=== PATIENT | male | born 2005 | race Two or more races ===

== ENCOUNTER 2024-02-13 05:07 | Emergency (ER) | payer BC, MEDICAID ==
[~2024-02-13] VITALS: Ht 188 cm; Wt 74.5 kg
[2024-02-13 05:21] VITALS: BP 100/77; PULSE 87; RESP 18; TEMP 98.7; O2SAT 97
[2024-02-13] MEDS: NEOMYCIN-BACITRACIN-POLYM UNITDOSE PKG TOP OINT TOP ONE (06:55)
[2024-02-13] MEDS: LIDOCAINE W/ EPINEPHRINE 1% 20ML VIAL ID ONE (07:03)
[2024-02-13] MEDS: LIDOCAINE 1% HCL (LOCAL ANESTH.) INJ 20ML MDV ONE (07:04)
[2024-02-13] MEDS: LIDOCAINE W/ EPINEPHRINE 2% INJ 20ML VIAL ONE (07:05)
[2024-02-13] MEDS: LIDOCAINE W/ EPINEPHRINE 2% INJ 20ML VIAL IJ ONE (07:06)
[2024-02-13] MEDS ORDERED: CEPH500C PO (08:01)
== END 2024-02-13 08:07 | disposition home or self-care (01) ==
LOC: ER 05:07
DX: S01.111A Laceration without foreign body of right eyelid and periocular area, initial encounter (principal); Y04.8XXA Assault by other bodily force, initial encounter; Y93.89 Activity, other specified; Y92.89 Other specified places as the place of occurrence of the external cause; Y99.8 Other external cause status
CPT/HCPCS: 12013; J2001

== ENCOUNTER 2024-02-20 08:15 | Emergency (ER) | payer BC ==
[~2024-02-20] VITALS: Ht 185.4 cm; Wt 72.0 kg
[~2024-02-20 08:15] MED LIST: CEPH500C PO
[2024-02-20 08:47] VITALS: BP 135/88; PULSE 75; RESP 14; TEMP 98; O2SAT 98
== END 2024-02-20 09:09 | disposition home or self-care (01) ==
LOC: ER 08:17
DX: Z48.817 Encounter for surgical aftercare following surgery on the skin and subcutaneous tissue (principal)

== ENCOUNTER 2024-02-26 08:17 | Emergency (ER) | payer BC ==
[~2024-02-26] VITALS: Ht 188 cm; Wt 74.0 kg
[2024-02-26 09:37] VITALS: BP 105/73; PULSE 60; RESP 16; TEMP 98; O2SAT 100
== END 2024-02-26 10:09 | disposition home or self-care (01) ==
LOC: ER 08:17
DX: S01.111D Laceration without foreign body of right eyelid and periocular area, subsequent encounter (principal); X58.XXXD Exposure to other specified factors, subsequent encounter